=== PATIENT | male | born 1970 | race Caucasian/White ===

== ENCOUNTER 2018-01-13 11:52 | Emergency (ER) | payer MEDICAID ==
[~2018-01-13] VITALS: Ht 175.3 cm; Wt 97.0 kg
[2018-01-13 11:55] VITALS: BP 136/86
[2018-01-13] MEDS ORDERED: KETOROLAC 30 MG/1 ML IM ONE (13:30)
[2018-01-13] MEDS ORDERED: OXYcodone/APAP 5/325MG TABLET PO ONE (13:30)
[2018-01-13] MEDS ORDERED: DIAZEPAM 5 MG TABLET PO ONE (13:30)
[2018-01-13] MEDS ORDERED: DIAZEPAM 5 MG TABLET ONE (13:31)
[2018-01-13] MEDS ORDERED: KETOROLAC 30 MG/1 ML ONE (13:32)
[2018-01-13] MEDS ORDERED: OXYcodone/APAP 5/325MG TABLET ONE (13:32)
== END 2018-01-13 14:47 | disposition home or self-care (01) ==
LOC: ED 14:41
DX: S46.911A Strain of unspecified muscle, fascia and tendon at shoulder and upper arm level, right arm, initial encounter (principal); G43.909 Migraine, unspecified, not intractable, without status migrainosus; Z90.49 Acquired absence of other specified parts of digestive tract; X58.XXXA Exposure to other specified factors, initial encounter; Y93.89 Activity, other specified; Y92.89 Other specified places as the place of occurrence of the external cause; Y99.8 Other external cause status
CPT/HCPCS: 72072; 96372; 99284; J1885

== ENCOUNTER 2018-01-19 08:36 | Emergency (ER) | payer MEDICAID ==
[~2018-01-19] VITALS: Ht 175.3 cm; Wt 95.0 kg
[2018-01-19 08:45] VITALS: BP 159/100
[2018-01-19] MEDS ORDERED: DIAZEPAM 5 MG TABLET PO ONE ×2 (09:00→10:30)
[2018-01-19] MEDS ORDERED: KETOROLAC 30 MG/1 ML IM ONE (09:00)
[2018-01-19] MEDS ORDERED: DIAZEPAM 5 MG TABLET ONE ×2 (09:11→10:03)
[2018-01-19] MEDS ORDERED: KETOROLAC 30 MG/1 ML ONE (09:11)
[2018-01-19] MEDS ORDERED: HYDROcodone/APAP 10/325 MG TABLET PO ONE ×2 (09:30→10:30)
[2018-01-19] MEDS ORDERED: HYDROcodone/APAP 10/325 MG TABLET ONE ×2 (09:34→11:19)
[2018-01-19] MEDS ORDERED: SODIUM CHLORIDE FLUSH 10ML SYR IVF ONE (10:30)
[2018-01-19] MEDS ORDERED: GADOBUTROL 10 MMOL/10 ML PFS ONE (11:58)
[2018-01-19] MEDS ORDERED: DEXAMETHASONE 4 MG/ML, 5ML ONE (13:28)
[2018-01-19] MEDS ORDERED: DEXAMETHASONE 4 MG/ML, 1ML IVPush ONE (14:00)
== END 2018-01-19 14:04 | disposition home or self-care (01) ==
LOC: ED 09:20
DX: M54.12 Radiculopathy, cervical region (principal)
CPT/HCPCS: 72125; 72156; 96372; 96374; 99284; A9585; J1100; J1885

== ENCOUNTER 2018-01-28 16:45 | Emergency (ER) | payer MEDICAID ==
[~2018-01-28] VITALS: Ht 175.3 cm; Wt 95.5 kg
[2018-01-28] MEDS ORDERED: KETOROLAC 30 MG/1 ML ONE (17:14)
[2018-01-28] MEDS ORDERED: METOCLOPRAMIDE 5 MG/ML, 2ML ONE (17:15)
[2018-01-28] MEDS ORDERED: MORPHINE SULFATE 4 MG/ML, 1ML ONE (17:15)
[2018-01-28 17:24] VITALS: BP 175/118
[2018-01-28] MEDS ORDERED: SODIUM CHLORIDE FLUSH 10ML SYR IVF ONE (17:30)
[2018-01-28] MEDS ORDERED: MORPHINE SULFATE 4 MG/ML, 1ML IVPush PRN (17:30)
[2018-01-28] MEDS ORDERED: METOCLOPRAMIDE 5 MG/ML, 2ML IVPush ONE (17:30)
[2018-01-28] MEDS ORDERED: KETOROLAC 30 MG/1 ML IV ONE (17:30)
[2018-01-28] MEDS ORDERED: DIAZEPAM 5 MG/ML, 10ML VIAL IV ONE (17:30)
== END 2018-01-28 18:45 | disposition home or self-care (01) ==
LOC: ED 17:31
DX: M54.12 Radiculopathy, cervical region (principal); G89.29 Other chronic pain; Z87.891 Personal history of nicotine dependence
CPT/HCPCS: 96374; 96375; 99284; J1885; J2765; J3360